=== PATIENT | male | born 1955 | race African-American/Black ===

== ENCOUNTER 2023-07-16 12:07 | Outpatient (CLI) | payer MEDICARE, MEDICAID, SELFPAY ==
--- NOTE | ~2023-07-16 | PE_ITS ---
EXAMINATION: PET_PETPSMAST_PT DATE: 07/16/2023 15:16 INDICATION: Prostate cancer TECHNIQUE: 9.509 mCi of pipflufolastat F-18 (18-F-DCFPyL) was administered i.v. Low dose computed to mography (CT) images were acquired from the base of the brain to the base of the brain to the proxima l thighs for attenuation correction and anatomic localization. Positron emission tomography (PET) nurys ges were acquired in the same distribution beginning 87 minutes after injection. Images including fus ed PET/CT images were reconstructed in axial, coronal, and sagittal planes. Automated exposure contro l technique was employed. The dose-length product was 481.20mGy-cm. COMPARISON: None FINDINGS: Head/neck: Typical pattern of symmetric physiologic increased activity in the lacrimal, parotid and submandibula r glands as well as along the mucosa of the nasal and oral cavities, the sherie-, naso- and hypopharynx, the glottis and esophagus. There is also a typical pattern of symmetric tiny foci of mild likely phy siologic neural ganglia uptake at a few bilateral cervical neural foramina. No pathologically enlarge d cervical lymphadenopathy or suspicious foci of increased uptake in the visualized head or neck. Chest: Mild emphysema. Calcified nodule at the left apex consistent with old granulomatous disease. Discoid atelectasis in the left lower lobe. No suspicious pulmonary nodules, pneumonia or pleural effusion. H eart size is normal. No pericardial effusion. No pathologically enlarged or PSMA avid thoracic lympha denopathy. Abdomen/pelvis/proximal thighs: Physiologic renal accumulation and excretion of activity in the kidneys, bladder and along portions o f ureters. Normal degree and slightly heterogenous pattern of increased uptake throughout the liver a nd spleen without radiologic correlate or dominant PSMA avid lesion. The gallbladder, pancreas and bi lateral adrenal glands are normal. Moderate uptake scattered throughout the bowels with typical duode nal and proximal jejunal predominance and without radiologic correlate, also likely physiologic. Ther e is moderate mild scattered colonic diverticulosis with a sigmoid predominance. There is no adjacent inflammatory change to suggest diverticulitis. Prostatomegaly with 2 foci of increased PSMA activit y in the prostate, the larger and more intense at the left side of the prostate with maximal SUV of 5 4.4 the second smaller focus in the left prostate with maximal SUV of 7.4. Additionally there is a sm all focus of asymmetric increased uptake slightly to the left of midline at the more posterior superi or seminal vesicles with maximal SUV of 4.2. No other abnormal foci of increased uptake or pathologi rocío enlarged lymphadenopathy in the abdomen, pelvis or proximal thighs. Musculoskeletal: No suspicious lytic, blastic or PSMA avid bone lesions. IMPRESSION: 1. 2 foci of increased uptake within the enlarged prostate consistent with reported primary prostate cancer, the larger more intense on the left. 2. Small focus of mild increased uptake at the medial left seminal vesicle raising concern for invasi on/locally metastatic disease. No other lesions suspicious for more widespread metastatic disease. Reviewed, dictated and finalized at location A. COLLECTION COORDINATOR IMPRESSION: 1. 2 foci of increased uptake within the enlarged prostate consistent with repo rted primary prostate cancer, the larger more intense on the left. 2. Small focus of mild increased uptake at the medial left seminal vesicle rais ing concern for invasion/locally metastatic disease. No other lesions suspiciou s for more widespread metastatic disease.
== END 2023-07-16 12:08 | disposition home or self-care (01) ==
PROVIDERS: Visit Provider Urology
DX: C61 Malignant neoplasm of prostate (principal)
CPT/HCPCS: 78815; A9595